=== PATIENT | female | born 1970 | race Caucasian/White ===

== ENCOUNTER 2016-09-30 07:40 | Emergency (ER) ==
[2016-09-30 07:51] VITALS: BP 106/70
[2016-09-30 08:27] LABS: URINE SOURCE CLEAN CATCH
[2016-09-30 08:35] LABS: BILIRUBIN URINE NEGATIVE (NEGATIVE); BLOOD URINE NEGATIVE (NEGATIVE); CLARITY SL. CLOUDY (CLEAR); COLOR YELLOW; GLUCOSE URINE NEGATIVE (NEGATIVE); LEUKOCYTES URINE 2+ (NEGATIVE); NITRITE URINE NEGATIVE (NEGATIVE); PROTEIN URINE 1+(30 mg/dL) mg/dL (NEGATIVE); SP GRAVITY URINE 1.015; UROBILINOGEN URINE NORMAL
[2016-09-30 08:36] LABS: URINE CULTURE PL NEEDED? YES; URINE EPITHELIAL CELLS <10 /HPF (<10)
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
--- NOTE | 2016-09-30 09:22 | Diag Imaging Result Document ---
PROCEDURE NAME: HEAD/C-SPINE W/O CONTRAST - 09/30/2016 CT BRAIN AND CERVICAL SPINE WITHOUT: BRAIN WITHOUT: FINDINGS: No parenchymal hemorrhage. No epidural or subdural hematoma. No subarachnoid hemorrhage. No skull fracture. No hydrocephalus. No mass identified on this noncontrasted exam. There is mucosal thickening in the maxillary and sphenoid sinuses with small amount of mucus in the frontal and ethmoid sinuses. IMPRESSION: 1. No hemorrhage. No injury. 2. Mild sinusitis. CT CERVICAL SPINE WITHOUT CONTRAST: FINDINGS: There is good alignment of the cervical spine. No free cervical soft tissue swelling. No subluxation. No fracture. IMPRESSION: No acute bony injury. A preliminary report was given at 9:06 a.m.
--- NOTE | 2016-09-30 09:26 | Diag Imaging Result Document ---
PROCEDURE NAME: LUMBAR SPINE - 09/30/2016 LUMBAR SPINE AP AND LATERAL WITH OBLIQUES, 6 VIEWS: FINDINGS: There is mild scoliosis. No compressed vertebra. No other fracture. No subluxation. IMPRESSION: No acute bony injury.
--- NOTE | 2016-09-30 09:48 | Diag Imaging Result Document ---
PROCEDURE NAME: CHEST-1 VIEW - 09/30/2016 CHEST SINGLE VIEW: COMPARISON: 07/02/2015. FINDINGS: The lungs are well expanded. No contusions or pneumothoraces. The mediastinum is not widened. No pleural effusion or displaced fracture identified. IMPRESSION: No injury.
[2016-09-30] MEDS ORDERED: XYLOCAINE-MPF 1% INJ ONE (10:06)
[2016-09-30] MEDS ORDERED: TYLENOL WITH CODEINE #3 PO ONE (10:06)
[2016-09-30] MEDS ORDERED: DERMABOND TOP ONE (10:06)
[2016-09-30] MEDS ORDERED: ROCEPHIN IM ONE (10:06)
[2016-09-30] MEDS ORDERED: DERMABOND ONE (10:07)
== END 2016-09-30 11:23 | disposition home or self-care (01) ==
LOC: P.ED 07:40
DX: S01.81XA Laceration without foreign body of other part of head, initial encounter (principal); N39.0 Urinary tract infection, site not specified; S00.81XA Abrasion of other part of head, initial encounter; M54.5 Low back pain; M62.830 Muscle spasm of back; J32.9 Chronic sinusitis, unspecified; F31.9 Bipolar disorder, unspecified; Z79.899 Other long term (current) drug therapy; V49.9XXA Car occupant (driver) (passenger) injured in unspecified traffic accident, initial encounter
CPT/HCPCS: 70450; 71010; 72110; 72125; 81001; 81025; 87088; 96372; J0696